=== PATIENT | male | born 1960 ===

== ENCOUNTER → 2019-01-28 | Outpatient (CLI) | payer MEDICARE, OTHER ==
--- NOTE | 2019-01-28 07:39 | US ---
EXAMINATION TYPE: US abdomen complete DATE OF EXAM: 01/28/2019 COMPARISON: CT 2014. CLINICAL HISTORY: R10.10 Upper Abdominal Pain. Pain, nausea, GB removed EXAM MEASUREMENTS: Liver Length: 19.1 cm CBD: 0.5 cm Spleen: 13.9 cm Right Kidney: 12.4 x 4.4 x 4.6 cm Left Kidney: 12.3 x 5.5 x 6.5 cm Pancreas: Obscured by bowel gas Liver: Increased attenuation Gallbladder: Surgically absent Evidence for sonographic Alvarez's sign: No CBD: wnl Spleen: Enlarged Right Kidney: Cyst lateral= 1.7 x 1.7 x 1.4 cm Left Kidney: Multiple cysts, largest measured medial= 1.4 x 1.3 x 1.2 cm Upper IVC: wnl Abd Aorta: Ectatic Pancreas is suboptimally evaluated on images saved secondary to shadowing from overlying bowel gas pe r technologist. Visualized aorta shows no aneurysmal change. Visualized liver is heterogeneously hype rechoic suggesting diffuse fatty infiltration. No intrahepatic ductal dilatation is seen. Gallbladder surgically absent. Technologist ahmadi 1.7 cm simple appearing cyst upper pole right kidney likely en larged in size from subcentimeter exophytic lesion on 2014 CT. No hydronephrosis is present in either kidney on today's study. Left-sided nephrolithiasis lower pole level is not clearly identified on ul trasound which was present on CT. Technologist ahmadi a few small scattered simple appearing cysts thr oughout the left kidney on today's study not clearly seen on prior CT. Spleen is enlarged at 13.9 cm long axis without focal intrasplenic mass. Size is similar to 2014 CT. IMPRESSION: Suboptimal study without acute finding seen to account for patient's symptoms. Previously visualized left-sided nephrolithiasis not clearly seen on today's study. Suspect new diffuse fatty i nfiltration of liver.
== END | disposition home or self-care (01) ==
LOC: RADUSWWP 06:55
PROVIDERS: ATTEND Family Medicine
DX: R10.10 Upper abdominal pain, unspecified (principal)
CPT/HCPCS: 76700

== ENCOUNTER → 2019-02-16 | Outpatient (CLI) | payer MEDICARE, OTHER ==
--- NOTE | 2019-02-16 09:12 | CTL ---
EXAMINATION TYPE: CT Low Dose Lung DATE OF EXAM ORDERED: 02/16/2019 HISTORY: 58-year-old male personal history of tobacco use, Smoker 46 years. Lung cancer screening CT DLP: 122.[address] CTDI: 3.3 mGy Automated exposure control for dose reduction was used. SCREENING VISIT: Baseline COMPARISON: 08/11/2014 CT abdomen and pelvis TECHNIQUE: Low dose computed tomography scan was performed through the chest at 1 mm thick sections a nd reconstructed images in the coronal sagittal plane. Additional coronal MIP reconstruction performe d. CT DIAGNOSTIC QUALITY: Satisfactory FINDINGS: Heart normal size without pericardial effusion. Aorta normal caliber with conventional branching anatomy. Trace bilateral gynecomastia. Borderline to mildly enlarged AP window lymph node measures 1.1 cm. Non enlarged 8mm precarinal lymph node. There is borderline sized caliber to the main right and left pulmonary arteries measuring up to 2.6 c m. This may reflect underlying pulmonary arterial hypertension. Mild diffuse bronchial wall thickening and moderate upper lung centrilobular emphysema. Mild biapical pleural-parenchymal scarring. There is an ovoid soft tissue lesion measuring approximately 4.2 x 2.0 x 2.7 cm in the right ninth in tercostal space, laterally, axial series 5 image 54 and sagittal image 34. This could be chest wall o r pleural-based. This lesion contributes to slight cortical erosion of the supraadjacent rib. Refer t o axial series 4 image 250. 7 mm subpleural pulmonary nodule posterior left upper lobe adjacent to the distal aortic arch, axial image 93. 3 mm pulmonary nodule located just anteriorly in the left upper lobe on the same slice. Visualized upper abdomen shows partially visualized cortical hypodensity involving the left kidney me asuring at least 1.6 cm, probable cyst. Cholecystectomy clips are present. Bones: Mild endplate spondylosis lower thoracic spine. IMPRESSION: 1. LungRADS 3 - probably benign. A couple pulmonary nodules measuring 7 and 3 mm on the l eft. 2. An ovoid 4.2 cm soft tissue lesion along the right ninth intercostal space shows minimal adjacent rib erosion. Given stability from 08/11/2014, a peripheral nerve sheath tumor is suggested. Consider t issue sampling to confirm. 3. COPD with moderate emphysema and pulmonary arterial hypertension 4. Borderline to mildly enlarged 1.1 cm AP window lymph node is probably reactive/post inflammatory a nd should be reassessed at follow-up. RECOMMENDATION: 1. Six-month follow-up low-dose CT for reassessment of the 7 mm left-sided pulmonary nodule and the 1 .1 cm AP window lymph node. 2. Stability from 2013 suggests a benign etiology for the 4.2 cm right chest wall mass located in the ninth intercostal space. Consider targeted ultrasound evaluation and tissue sampling to establish a diagnosis. 3. Smoking cessation. FOLLOW UP CT CHEST RECOMMENDATION: [address] LUNG RAD: Lung-Rad 3 Probably Benign
== END | disposition home or self-care (01) ==
LOC: RADCTMAIN 06:58
PROVIDERS: ATTEND Family Medicine
DX: Z12.2 Encounter for screening for malignant neoplasm of respiratory organs (principal); J43.9 Emphysema, unspecified; R91.8 Other nonspecific abnormal finding of lung field; I27.21 Secondary pulmonary arterial hypertension; Z87.891 Personal history of nicotine dependence

== ENCOUNTER → 2019-08-23 | Outpatient (CLI) | payer MEDICARE, OTHER ==
--- NOTE | 2019-08-23 09:16 | CTL ---
EXAMINATION TYPE: CT Low Dose Lung DATE OF EXAM ORDERED: 08/23/2019 HISTORY: Long-term tobacco use. Lung cancer screening. Lung RADS [address] DLP: [address] CTDI: 2.4 mGy Automated exposure control for dose reduction was used. SCREENING VISIT: Second study COMPARISON: Prior CT February 16, 2019. TECHNIQUE: Low dose computed tomography scan was performed through the chest at 1 mm thick sections a nd reconstructed images in the coronal plane at [address] DIAGNOSTIC QUALITY: Satisfactory FINDINGS: LUNG NODULES: Present, detailed below: Stable 7 x 3 mm nodule left upper lobe near arch axial image 114 correlating with coronal image 217 a nd sagittal image 224. Stable 3 x 3 mm nodule subpleural level just anterior to the axial image 113 LUNGS: COPD: Severity: Moderate most prominent upper lungs. Fibrosis: Severity: Mild biapical Lymph nodes: No definitive new greater than 1 cm Other findings: None BILATERAL PLEURAL SPACE: Effusion: None Calcification: None Thickening: Stable ovoid soft tissue lesion measuring approximately 4.2 x 2.1 cm axial image 56 serie s 5 right ninth intercostal space either chest wall or pleural based. Perhaps slight erosive changes along inferior margin of the adjacent rib coronal image 221. No significant change from prior. Pneumothorax: None. HEART: Heart Size: Normal Coronary calcification: None Pericardial effusion: None OTHER FINDINGS: Upper abdomen: Cholecystectomy clips. Bony thorax: Mild multilevel spurring. Supraclavicular region: None. Other: None. IMPRESSION: Overall stable findings. No new or enlarging nodules. FOLLOW UP CT CHEST RECOMMENDATION: Annual low-dose lung screening CT CT LUNG RAD: Lung-Rad 2 Benign Appearance or Behavior
== END | disposition home or self-care (01) ==
LOC: RADCTMAIN 07:55
PROVIDERS: ATTEND Family Medicine
DX: Z12.2 Encounter for screening for malignant neoplasm of respiratory organs (principal); Z87.891 Personal history of nicotine dependence

== ENCOUNTER → 2020-09-22 | Outpatient (CLI) | payer MEDICARE, OTHER | END | disposition home or self-care (01) | LOC: RADCTMAIN 06:40 | PROVIDERS: ATTEND Family Medicine | DX: Z53.9 Procedure and treatment not carried out, unspecified reason (principal) ==

== ENCOUNTER 2024-03-03 11:07 | Day surgery (SDC) | payer MEDICARE, OTHER ==
[2024-03-02 10:11] VITALS: BMI 31.1
[2024-03-03] MEDS: LACTATED RINGERS 1,000 ML IV SCH (12:16)
[2024-03-03] MEDS ORDERED: PROPOFOL 10 MG/ML 20 ML VIAL IV ONE (12:26)
[2024-03-03 12:30] LABS: Glucose,Whole Blood 159 mg/dL (70-110)
[2024-03-03 12:43] VITALS: TEMP 98.2
--- NOTE | 2024-03-03 12:46 | P.PCN ---
Date of Procedure: 03/03/24 Procedure(s) Performed: BRIEF HISTORY: Patient is a 63-year-old pleasant White male scheduled for an elective colonoscopy as a part of screening for colon cancer. PROCEDURE PERFORMED: Colonoscopy With snare Polypectomy PREOPERATIVE DIAGNOSIS: Screening for colon cancer IV sedation per Anesthesia. PROCEDURE: After informed consent was obtained, the patient, was brought into the endoscopy unit. IV sedation was administered by Anesthesia under continuous monitoring. Digital rectal examination was normal. Initially the Olympus CF-160 flexible video colonoscope was then inserted in the rectum, gradually advanced into the cecum without any difficulty. Careful examination was performed as the scope was gradually being withdrawn. Ileocecal valve and the appendiceal orifice were visualized and appeared normal. Prep was Poor and several areas of the colon.. Mucosa of the cecum, ascending colon,Appeared normal. The transverse colon there were 3 polyps measuring between 5 limited to 1 cm in size removed by snare polypectomy. In the descending colon there were 6 polyps measuring between 5 limited to 8 mm in size removed by snare polypectomy. In the sigmoid: There was a 2 cm translated polyp removed by snare polypectomy. This was located at 45 cm from the anal verge. In the rectum there was a 1 cm polyp removed by snare polypectomy. Rest of the transverse colon, descending colon, sigmoid colon, and rectum appeared normal. Retroflexion was performed in the rectum and no lesions were seen. The patient tolerated the procedure well. IMPRESSION: 3 polyps in the transverse colon measuring between 5 mm to 1 cm in size status post polypectomy 6 polyps in the descending colon measuring between 5 mm to 8 mm in size status post polypectomy 2 cm sigmoidpolyp status post polypectomy 1 cm rectal polyp status post polypectomy RECOMMENDATIONS: Findings of this examination were discussed with the patient As well as his family. He was advised to Follow with the biopsy results and have a repeat colonoscopy in one to 2 years.
[2024-03-03 14:08] VITALS: BP 133/70; PULSE 74; RESP 20
== END 2024-03-03 13:43 | disposition home or self-care (01) ==
LOC: ORWHC2ENDO 11:07
PROVIDERS: ATTEND Internal Medicine Gastroenterology
DX: Z12.11 Encounter for screening for malignant neoplasm of colon (principal); D12.4 Benign neoplasm of descending colon; D12.3 Benign neoplasm of transverse colon; K62.1 Rectal polyp
CPT/HCPCS: 88305; 45385; J2704; 45380

== ENCOUNTER → 2024-09-28 | Outpatient (CLI) | payer MEDICARE, OTHER ==
--- NOTE | 2024-09-28 16:43 | US ---
EXAMINATION TYPE: US scrotum with doppler. DATE OF EXAM: 09/28/2024 COMPARISON: NONE CLINICAL INDICATION: Male, 64 years old with history of [id number] RIGHT TESTI PAIN, N492 INFLAMATORY DIS ORDERS OF SCROT; TECHNIQUE: Grayscale, color Doppler and spectral Doppler imaging of the scrotum. FINDINGS: EXAM MEASUREMENTS: TESTICLES: Right Testicle: 2.7x2.0x2.6 cm Left Testicle: 2.9x1.8x2.6 cm EPIDIDYMIS HEAD: Right Epididymis: 0.9x1.2x0.8 cm Left Epididymis: 0.9x0.7x1.1 cm Doppler performed to assess for testicular vascularity; good bilateral color flow and spectral wavefo clyde are seen. There is no evidence of testicular torsion. Presence of hydroceles: yes Presence of varicoceles: no RT EPI HEAD: MULTIPLE ANECHOIC STRUCTURES SEEN LARGEST:0.3X0.2X0.2CM compatible with epididymal cysts. IMPRESSION: 1. Appropriate Arterial and spectral venous waveforms to the testes. 2. Small bilateral hydroceles. 3. No evidence for intratesticular mass. [facility], , 09/28/2024 4:41 PM
== END | disposition home or self-care (01) ==
LOC: RADUSWWP 15:52
PROVIDERS: ATTEND Family Medicine
DX: N50.811 Right testicular pain (principal); N49.2 Inflammatory disorders of scrotum; N43.3 Hydrocele, unspecified
CPT/HCPCS: 76870; 93975

== ENCOUNTER → 2025-01-13 | Outpatient (CLI) | payer MEDICARE, OTHER ==
--- NOTE | 2025-01-13 10:39 | CTL ---
EXAMINATION TYPE: CT Low Dose Lung DATE OF EXAM ORDERED: 01/13/2025 COMPARISON: Prior studies 2019 CLINICAL INDICATION: Male, 64 years old with history of Z12.2 LUNG CA SCR Z87.891 FORMER SMO[employer]ER; [facility], lung CA screening, Lung cancer screening, History of Smoking/tobacco use. TECHNIQUE: Low dose computed tomography scan was performed through the chest at 1 mm thick sections a nd reconstructed images in multiple planes at 1 mm and [address] DLP: 127.[address] CTDI: 3.4 mGy Automated exposure control for dose reduction was used. CT DIAGNOSTIC QUALITY: Satisfactory FINDINGS: LUNG NODULES: Present, detailed below: Scattered stable small nodules for reference Stable 7 x 3 mm nodule left upper lobe near arch axial image 94. Stable 3 x 3 mm nodule subpleural level just anterior to this axial image 95. No new or enlarging greater than 6 mm pulmonary nodules. LUNGS: COPD: Severity: Moderate most prominent upper lungs. Fibrosis: Severity: Mild biapical Lymph nodes: No definitive new greater than 1 cm Other findings: None BILATERAL PLEURAL SPACE: Effusion: None Calcification: None Thickening: Stable ovoid soft tissue lesion measuring approximately 4.1 x 2.1 cm axial image 52 serie s 5 right ninth intercostal space either chest wall or pleural based. Perhaps slight erosive changes along inferior margin of the adjacent rib coronal image 41. No significant change from priors. Pneumothorax: None. HEART: Heart Size: Normal Coronary calcification: None Pericardial effusion: Tiny OTHER FINDINGS: Upper abdomen: Cholecystectomy clips. Bony thorax: Slight scoliotic curvature. Supraclavicular region: None. Other: None. IMPRESSION: Overall stable findings. No new or enlarging greater than [address] UP [address] CHEST RECOMMENDATION: Annual low-dose lung screening CT CT LUNG RAD: Lung-Rad 2 Benign Appearance or Behavior [facility], , 01/13/2025 10:36 AM
== END | disposition home or self-care (01) ==
LOC: RADCTMAIN 06:21
PROVIDERS: ATTEND Family Medicine
DX: Z12.2 Encounter for screening for malignant neoplasm of respiratory organs (principal); Z87.891 Personal history of nicotine dependence
CPT/HCPCS: 71271